=== PATIENT | male | born 1980 | race Caucasian/White ===

== ENCOUNTER 2025-08-01 20:23 | Emergency (ER) | payer SELFPAY ==
[2025-08-01 20:26] VITALS: BP 161/83; PULSE 112; RESP 15; TEMP 36.8; O2SAT 98; BMI 38.6
--- NOTE | 2025-08-01 20:55 | ECG_ITS ---
Test Reason : PAIN Blood Pressure : */* mmHG Vent. Rate : 66 BPM Atrial Rate : 66 BPM P-R Int : 154 ms QRS Dur : 100 ms QT Int : 412 ms P-R-T Axes : 21 -4 13 degrees QTcB Int : 431 ms Normal sinus rhythm with sinus arrhythmia Normal ECG No previous ECGs available Referred By: Gavin Astorga Electronically Signed By: YESENIA BONE MD
--- NOTE | 2025-08-01 20:57 | ED_ITS ---
HPI - General Adult General Chief complaint: Anxiety Stated complaint: anxiety attack Time Seen by Provider: 08/01/25 20:36 Source: patient and RN notes reviewed Mode of arrival: ambulatory Limitations: no limitations History of Present Illness ED Provider: Rizwan BLAKELY narrative: 45-year-old male who denies any known past medical history presents for evaluation of depression with suicidal ideation. The patient reports he has had depressive thoughts for many years pain He reports he recently got has been having worsening thoughts. he reports having had thoughts of killing himself on his way over here but has no specific plan he has never tried to intentionally harm himself in the past he denies any alcohol or drug use he reports that he has never been seen for depression or anxiety but believes he may need to talk to a shrink. He denies any somatic complaints Related Data Allergies Allergy/AdvReac Type Severity Reaction Status Date / Time No Known Allergies Allergy Verified 08/01/25 20:29 Review of Systems 2 Constitutional: Constitutional: Denies body ache(s), Denies chills, Denies fever(s) and Denies headache(s) Eyes: Eyes: Denies blurry vision ENT: Denies vertigo, Denies dizziness and Denies headache(s) Cardiovascular: Cardiovascular: Denies chest pain Respiratory: Respiratory: Denies cough Gastrointestinal: Gastrointestinal: Denies abdominal pain Musculoskeletal: Musculoskeletal: Denies back pain Integumentary/Breasts: Skin/Breast: Denies rash Neurologic: Denies vertigo, Denies dizziness and Denies headache(s) Psychiatric: Psychiatric: Reports anxiety, Reports depression, Denies auditory hallucinations, Reports panic attacks, Denies paranoia, Denies homicidal ideation and Reports suicidal ideation PMFSH Social History Social History Smoked in Last 30 Days: No Use of substances other than those prescribed or required for medical reasons: No Advance Directives: No Advance Directives Information Provided: No Do you have a plan to hurt others: No Plan Physical Exam ED Vital Signs: Vital Signs - 24 hr 08/01/25 20:26 Temperature 98.2 F Pulse Rate 112 H Respiratory Rate 15 Blood Pressure 161/83 H Pulse Oximetry 98 Oxygen Delivery Method Room Air BMI result Body Mass Index 38.6 Const General: healthy appearing, comfortable, no acute distress, alert and awake Nutritional Appearance: well nourished Orientation/consciousness: patient oriented x3 HENMT Head: Yes normocephalic and Yes atraumatic Eyes Eyelids: Yes eyelids normal Conjunctivae: conjunctivae normal Sclerae: sclerae normal Corneas: corneas normal Pupils: Equal, round and reactive pupils present EOM: EOMs intact bilaterally Neck Neck: Yes full ROM Resp Effort & Inspection: normal respiratory effort, able to speak in complete sentences, no audible wheezes and not labored Auscultation: clear to auscultation bilaterally Cardio Rate: regular rate Rhythm: regular rhythm GI Inspection: No distended Palpation (GI): Soft to palpation, not firm, nontender, no guarding and not rigid Skin General skin exam: no rashes or lesions noted and elasticity normal Neuro General: patient oriented x3 Cranial nerves: Yes CN's II-XII intact bilaterally, Yes Equal, round and reactive pupils present and Yes Bilaterally intact EOM present Cognition (Neuro): normal cognition Extrem Other: Moving all extremities well without any obvious deformities Course Reevaluation(s) Reevaluation #1: the patient has been seen by the care team and he is reported that he is not actively suicidal. He reports he was having a panic attack which led him to say that. He would like to be discharged with outpatient resources. The patient was not meeting inpatient level of care per care team and is stable for discharge at this time. We will discharge the patient with p.r.n. hydroxyzine for his anxiety and panic attacks. He will be given strict return precautions to return to the ED if you are having any further thoughts of suicidality Time: 23:38 Medications Administered Discontinued Medications Generic Name Dose Route Start Last Admin Trade Name Freq PRN Reason Stop Dose Admin Lorazepam 1 mg 08/01/25 20:54 08/01/25 21:02 Lorazepam 1 Mg Tablet PO 08/01/25 20:55 1 mg ONCE ONE Administration Medical Decision Making Medical Decision Making MDM Narrative: 45-year-old male who denies any known past medical history presents for evaluation of depression with suicidal thoughts. The patient will require medical clearance. He has no somatic complaints, he appears anxious but otherwise nontoxic appearing. He is slightly tachycardic which I feel is related to his anxiety. We will give him a dose of lorazepam 1 mg, we will which the patient has screening labs, EKG and a tox screen and if medically cleared he will require a crisis consult Differential Diagnosis Differential Diagnoses: The differential diagnosis associated with the presentation includes depression Suicidal ideation Anxiety Bipolar disorder Substance abuse Lab Data MDM Lab Attestation statement: I reviewed the patient's lab results. no leukocytosis or anemia. Normal platelet count. No electrolyte abnormalities warranting dimension. 08/01/25 21:21 08/01/25 21:21 Labs: Lab Results 08/01/25 08/01/25 Range/Units 21:21 21:27 WBC 10.8 (4.8-10.8) X10*3/uL RBC 5.12 (4.60-5.80) X10*6/uL Hgb 15.4 (14.0-18.0) g/dl Hct 45.5 (42.0-52.0) % MCV 88.9 (80.0-98.0) fL MCH 30.1 (27.0-33.0) pg MCHC 33.8 (31.0-36.0) g/dl RDW 13.3 (11.0-16.0) % Plt Count 215 (160-400) X10*3/uL MPV 10.5 (9.4-12.4) fL Immature Gran % (Auto) 0.3 (0.0-0.4) % Neut % (Auto) 76.1 H (45-73) % Lymph % (Auto) 13.5 L (20-40) % [place] % (Auto) 8.4 (2-11) % Eos % (Auto) 1.2 (0-4) % Baso % (Auto) 0.5 (0-2) % Lymph # (Auto) 1.5 (1.2-4.9) X10*3/uL [place] # (Auto) 0.9 (0.1-1.2) X10*3/uL Eos # (Auto) 0.1 (0.0-0.4) X10*3/uL Baso # (Auto) 0.1 (0.0-0.2) X10*3/uL Abs Immat Gran (auto) 0.03 (0.00-0.03) X10*3/uL Absolute Neuts (auto) 8.2 (2.0-8.3) x10*3/uL Absolute Nucleated RBC 0.000 (0.0-0.012) X10*3/uL Nucleated RBC % (auto) 0.0 (0.0-0.2) /100WBC Sodium 140 (135-145) mmol/L Potassium 3.9 (3.3-5.1) mmol/L Chloride 107 (96-108) mmol/L Carbon Dioxide 24 (22-29) mmol/L Anion Gap 13 (12-20) BUN 14 (9-16) mg/dL Creatinine 0.89 (0.5-1.4) mg/dL Estim Creat Clear Calc 151.4 Estimated GFR > 60 Random Glucose 110 (60-115) mg/dL Calcium 9.0 (8.4-10.2) mg/dL Total Bilirubin 0.3 (0.0-1.0) mg/dL AST 29 (5-37) U/L ALT 31 (0-40) U/L Alkaline Phosphatase 59 (39-117) U/L Total Protein 6.6 (6.5-8.0) g/dL Albumin 4.3 (3.5-5.0) g/dL Salicylates < 5.0 L (15-30) mg/dL Urine Opiates Screen Not Detected (Not Detect) Ur Buprenorphine Scrn Not Detected (Not Detect) ng/mL Ur Oxycodone Screen Not Detected (Not Detect) ng/mL Urine Methadone Screen Not Detected (Not Detect) ng/mL Urine Fentanyl Screen Not Detected (Not Detect) Acetaminophen < 3 (<30) mcg/mL Ur Barbiturates Screen Not Detected (Not Detect) Ur Phencyclidine Scrn Not Detected (Not Detect) Ur Amphetamines Screen Not Detected (Not Detect) U Benzodiazepines Scrn Not Detected (Not Detect) Urine Cocaine Screen Not Detected (Not Detect) U Marijuana (THC) Screen Not Detected (Not Detect) Ethyl Alcohol < 10 mg/dL Independent Interpretation I performed an independent interpretation of an: EKG ( Normal sinus rhythm with a rate of [address] changes) Discharge Plan Discharge Clinical Impression: Acute anxiety, Depression Patient Disposition: Home, Self-Care Instructions: Anxiety (ED) Additional Instructions: You were seen in our Emergency Department today for treatment of a behavioral health issue. It is important after your visit that you follow up with either your behavioral health provider or a primary care doctor within 7 days.? If you have trouble finding a therapist you can reach out to [address] [place] [phone] The National Suicide and Crisis Lifeline can be reached 7 days a week 24 hours a day.? Call 988 to speak with someone.? Return for any worsening symptoms or concerns such as thoughts of self harm or harm to others. Please call 911 if you feel your mental health is worsening.? Print Language: [place]
--- NOTE | 2025-08-01 21:05 | PC.NURSE ---
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 reported SI to Peter LOERA. pt medicated per mar. educated on plan of care for changeover, transition to Pod and speak with CARE. pt verbalizes understanding and agreement, currently calm/cooperative. 1:1 sitter. 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
[2025-08-01 21:31] LABS: MANUAL DIFF FLAG NO
[2025-08-01 21:32] LABS: Hematocrit 45.5 % (42.0-52.0); Hemoglobin 15.4 g/dl (14.0-18.0); Imm Gran Abs Auto 0.03 X10*3/uL (0.00-0.03); Imm Gran Pct Auto 0.3 % (0.0-0.4); Lymphocytes Absolute Auto 1.5 X10*3/uL (1.2-4.9); Mean Corpuscular HGB Conc 33.8 g/dl (31.0-36.0); Mean Corpuscular Hemoglobin 30.1 pg (27.0-33.0); Mean Corpuscular Volume 88.9 fL (80.0-98.0); NRBC Abs Auto 0.000 X10*3/uL (0.0-0.012); NRBC Pct Auto 0.0 /100WBC (0.0-0.2); Platelet Count 215 X10*3/uL (160-400); Red Blood Count 5.12 X10*6/uL (4.60-5.80); White Blood Count 10.8 X10*3/uL (4.8-10.8)
[2025-08-01 21:42] LABS: Cannabinoid Screen Urine Not Detected (Not Detect)
[2025-08-01 21:50] LABS: Acetaminophen LAB < 3 mcg/mL (<30); Alanine Aminotransferase 31 U/L (0-40); Albumin Level 4.3 g/dL (3.5-5.0); Alkaline Phosphatase 59 U/L (39-117); Anion Gap 13 (12-20); Aspartate Amino Transferase 29 U/L (5-37); Blood Urea Nitrogen 14 mg/dL (9-16); Calcium 9.0 mg/dL (8.4-10.2); Carbon Dioxide 24 mmol/L (22-29); Chloride 107 mmol/L (96-108); Creatinine Clr Calc Pharmacy 151.4; Estimated Glomerular Filt Rate > 60; Potassium 3.9 mmol/L (3.3-5.1); Salicylate < 5.0 mg/dL (15-30); Sodium 140 mmol/L (135-145); Total Protein 6.6 g/dL (6.5-8.0)
[2025-08-01 23:54] VITALS: BP 132/78; PULSE 98; RESP 15; TEMP 36.7; O2SAT 98
== END 2025-08-01 23:58 | disposition home or self-care (01) ==
PROVIDERS: Physician Assistant; Emergency Provider Emergency Medicine
DX: F41.9 Anxiety disorder, unspecified (principal); F32.A Depression, unspecified; R00.0 Tachycardia, unspecified; R45.851 Suicidal ideations; Z72.89 Other problems related to lifestyle; Z63.5 Disruption of family by separation and divorce
CPT/HCPCS: 36415; 80053; 80143; 80179; 80307; 85025; 93005; 99284; S9485

== ENCOUNTER → 2025-08-01 20:55 | Outpatient (BNV) | payer SELFPAY | PROVIDERS: Emergency Provider Emergency Medicine; Visit Provider Internal Medicine Cardiovascular Disease | DX: R07.9 Chest pain, unspecified (principal) | CPT/HCPCS: 93010 ==